=== PATIENT | male | born 1950 | race Caucasian/White ===

== ENCOUNTER 2017-10-12 11:02 | Inpatient (IN) | payer OTHER ==
[2017-10-12 12:16] VITALS: BMI 24.5
--- NOTE | 2017-10-12 12:32 | HP ---
COWS - Scale Resting Pulse: 0= [place] 80 or Below Sweatin= Chills/Flushing Restless Observation: 1= Difficult to Sit Still Pupil Size: 1= Pupils >than Normal Bone or Joint Aches: 2= Severe Diffuse Aches Runny Nose/ Eye Tearin= Runny Nose/Eyes GI Upset > 30mins: 2= Nausea/Diarrhea Tremor Observation: 2= Slight Tremor Visible Yawning Observation: 2= >3x During Session Anxiety or Irritability: 2=Irritable/Anxious Goose Flesh Skin: 0=Smooth Skin COWS Score: 15 Admission [facility] Chief Complaint: opiate withdrawal sx Allergies/Adverse Reactions: Allergies Allergy/AdvReac Type Severity Reaction Status Date / Time No Known Allergies Allergy Verified 10/12/17 12:25 History of Present Illness: 67 years old male with long history of opiate nicotine dependence has copd, hypertension, hepatitis c treated and anxiety is admitted to detox Exam Limitations: No Limitations - Ebola screening Have you traveled outside of the country in the last 21 days: No (N) Have you had contact with anyone from an Ebola affected area: No Have you been sick,other than usual withdrawal symptoms: No Do you have a fever: No - Review of Systems Constitutional: Loss of Appetite, Changes in sleep, Unintentional Wgt. Loss, Unexplained wgt Loss EENT: reports: Blurred Vision (need eye glasses) Respiratory: reports: SOB with Exertion, Productive cough Cardiac: reports: No Symptoms Reported GI: reports: Nausea, Poor Appetite, Poor Fluid Intake, Abdominal cramping : reports: No Symptoms Reported Musculoskeletal: reports: Back Pain, Joint Pain, Muscle Pain, Neck Pain Integumentary: reports: No Symptoms Reported Neuro: reports: Tremors Endocrine: reports: No Symptoms Reported Hematology: reports: No Symptoms Reported Psychiatric: reports: Judgement Intact, Orientated x3, Anxious, Depressed Other Systems: Reviewed and Negative Patient History - Patient Medical History Hx Anemia: No Hx Asthma: Yes Hx Chronic Obstructive Pulmonary Disease (COPD): Yes Hx Cancer: No Hx Cardiac Disorders: No Hx Congestive Heart Failure: No Hx Hypertension: Yes Hx Hypercholesterolemia: No Hx Pacemaker: No HX Cerebrovascular Accident: No Hx Seizures: No Hx Dementia: No Hx Diabetes: No Hx Gastrointestinal Disorders: No Hx Liver Disease: No Hx Genitourinary Disorders: No Hx Sexually Transmitted Disorders: No Hx Renal Disease (ESRD): No Hx Thyroid Disease: No Hx Human Immunodeficiency Virus (HIV): No Hx Hepatitis C: Yes (treated) Hx Depression: Yes Hx Suicide Attempt: No Hx Bipolar Disorder: No Hx Schizophrenia: No - Patient Surgical History Past Surgical History: Yes Hx Neurologic Surgery: No Hx Cataract Extraction: No Hx Cardiac Surgery: No Hx Lung Surgery: No Hx Breast Surgery: No Hx Breast Biopsy: No Hx Abdominal Surgery: No Hx Appendectomy: No Hx Cholecystectomy: No Hx Genitourinary Surgery: No Hx Orthopedic Surgery: No Other Surgical History: forehead cyst removed age 42 Anesthesia Reaction: No - PPD History Previous Implant?: Yes Documented Results: Positive w/o proof Implanted On Prior [facility] Admission?: No PPD to be Administered?: No - Smoking Cessation Smoking history: Current every day smoker Have you smoked in the past 12 months: Yes Aproximately how many cigarettes per day: 20 Cigars Per Day: 0 Hx Chewing Tobacco Use: No Initiated information on smoking cessation: Yes 'Breaking Loose' booklet given: 10/12/17 - Substance & Tx. History Hx Substance Use: Yes Substance Use Type: Heroin Hx Substance Use Treatment: Yes (age 42) Family Disease History - Family Disease History Family Disease History: Heart Disease: Father (), CA: Mother () Admission Physical Exam BHS - Vital Signs Vital Signs: Vital Signs - 24 hr 10/12/17 12:14 Temperature 97.6 F Pulse Rate 68 Respiratory 18 Rate Blood Pressure 159/83 - Physical General Appearance: Yes: Appropriately Dressed, Mild Distress, Thin, Tremorous, Irritable, Sweating, Anxious HEENTM: Yes: Hearing grossly Normal, Normocephalic, Normal Voice Respiratory: Yes: Chest Non-Tender, No Respiratory Distress, No Accessory Muscle Use, Hyperresonant Neck: Yes: Supple, Trachea in good position Breast: Yes: Breasts Symetrical, No Discharge Cardiology: Yes: Regular Rhythm, Regular Rate, S1, S2 Abdominal: Yes: Normal Bowel Sounds, Non Tender, Flat Genitourinary: Yes: Within Normal Limits Back: Yes: Normal Inspection Musculoskeletal: Yes: full range of Motion, Gait Steady, Back pain, Muscle Pain Extremities: Yes: Normal Inspection, Normal Range of Motion, Non-Tender, Tremors Neurological: Yes: Fully Oriented, Alert, Motor Strength 5/5, Normal Mood/Affect , Normal Response Integumentary: Yes: Warm Lymphatic: Yes: Within Normal Limits - Diagnostic (1) Opioid dependence with withdrawal Current Visit: Yes Status: Acute (2) Weight loss Current Visit: Yes Status: Acute (3) Hypertension Current Visit: Yes Status: Chronic Qualifiers: Hypertension type: essential hypertension Qualified Code(s): I10 - Essential (primary) hypertension (4) COPD (chronic obstructive pulmonary disease) Current Visit: Yes Status: Chronic Qualifiers: COPD type: emphysema Emphysema type: other Qualified Code(s): J43.8 - Other emphysema (5) Hepatitis C Current Visit: No Status: Resolved Qualifiers: Viral hepatitis chronicity: unspecified Hepatic coma status: without hepatic coma Qualified Code(s): B19.20 - Unspecified viral hepatitis C without hepatic coma (6) Positive PPD, treated Current Visit: No Status: Resolved Cleared for Admission S - Detox or Rehab [facility] Level of Care: Medically Managed Detox Regimen/Protocol: Methadone [facility] Breath Alcohol Content Breath Alcohol Content: 0 Urine Drug Screen - Results Drug Screen Negative: No Urine Drug Screen Results: OPI-Opiates, BZO-Benzodiazepines, MTD-Methadone
[2017-10-12] MEDS ORDERED: ACETAMINOPHEN 325 MG TABLET (FP) PO PRN (12:38)
[2017-10-12] MEDS ORDERED: MAGNESIUM HYDROX 2400MG/30ML ORAL SUSPENSION 30 ML CUP PO PRN (12:38)
[2017-10-12] MEDS ORDERED: P-EPHED 60MG/TRIPROLIDI 2.5MG TABLET PO PRN (12:38)
[2017-10-12] MEDS ORDERED: LOPERAMIDE HCL 2 MG CAPSULE PO PRN (12:38)
[2017-10-12] MEDS ORDERED: MAG HYDROX/AL HYDROX/SIMETH 30 ML UNIT-DOSE CUP PO PRN (12:38)
[2017-10-12] MEDS ORDERED: IBUPROFEN 400 MG TABLET (FP) PO PRN (12:38)
[2017-10-12] MEDS ORDERED: NICOTINE POLACRILEX 4 MG GUM BUC PRN (12:38)
[2017-10-12] MEDS ORDERED: MENTHOL/PHENOL 1 EACH UD MM PRN (12:38)
[2017-10-12] MEDS ORDERED: MAGNESIUM CITRATE 300 ML BOTTLE PO PRN (12:38)
[2017-10-12] MEDS ORDERED: guaiFENesin/D-METHORPHAN HB 10 ML UNIT-DOSE CUPS PO PRN (12:38)
[2017-10-12] MEDS ORDERED: ALBUTEROL SO4 8 GM HFA INHALER IH PRN (12:40)
[2017-10-12] MEDS ORDERED: ALBUTEROL SO4 0.083% IH SOL 2.5 MG/3 ML VIAL.NEB. NEB PRN (12:41)
[2017-10-12] MEDS ORDERED: METHADONE HCL 10 MG TABLET (FOR DETOX USE ONLY) PO ONE ×2 (14:50→23:00)
[2017-10-12] MEDS: NICOTINE 21 MG/24 HOURS TOPICAL PATCH TD SCH (16:52)
[2017-10-12] MEDS: diazePAM 5 MG TABLET PO PRN ×2 (16:53→22:10)
[2017-10-12] MEDS: HYDROCHLOROTHIAZIDE 25 MG TABLET (FP) PO SCH (16:53)
[2017-10-12 17:51] LABS: URINE APPEARANCE CLEAR; URINE BILIRUBIN NEGATIVE (<2.0 mg/dL); URINE COLOR YELLOW; URINE GLUCOSE (UA) NEGATIVE (NEGATIVE); URINE KETONE NEGATIVE (NEGATIVE); URINE LEUK ESTERASE NEGATIVE (NEGATIVE); URINE NITRITE NEGATIVE (NEGATIVE); URINE PROTEIN NEGATIVE (NEGATIVE); URINE UROBILINOGEN 4.0 E.U/dl mg/dL (0.2-1.0)
[2017-10-12] MEDS: THIAMINE HCL 100 MG TABLET (FP) PO SCH (22:10)
[2017-10-13 09:45] LABS: HEMATOCRIT 39.4 % (35.4-49); HEMOGLOBIN 13.5 GM/dL (11.7-16.9); MCH 31.1 pg (25.7-33.7); MCHC 34.3 g/dl (32.0-35.9); MEAN CELL VOLUME 90.7 fl (80-96); MEAN PLT VOLUME 10.2 fl (7.5-11.1); PLATELET COUNT 205 K/MM3 (134-434); RBC 4.35 M/mm3 (4.00-5.60); RDW 14.1 % (11.9-15.9)
[2017-10-13] MEDS ORDERED: METHADONE HCL 10 MG TABLET (FOR DETOX USE ONLY) PO ONE (10:00)
[2017-10-13 10:01] LABS: CHLORIDE 104 mmol/L (98-107); SODIUM 140 mmol/L (136-145)
[2017-10-13 10:08] LABS: ALBUMIN 4.1 g/dl (3.4-5.0); ALK PHOS 87 U/L (45-117); ANION GAP 6 (8-16); BILIRUBIN,TOTAL 0.3 mg/dL (0.2-1.0); BLOOD UREA NITROGEN 19 mg/dL (7-18); CALCIUM 9.3 mg/dL (8.5-10.1); CO2 30 mmol/L (21-32); CREATININE 0.8 mg/dL (0.7-1.3); GLUCOSE,RANDOM 110 mg/dL (74-106); SGOT/AST 20 U/L (15-37); SGPT/ALT 16 U/L (12-78); TOT PROT 7.3 g/dl (6.4-8.2)
[2017-10-13] MEDS: PRENATAL VITAMINS W/ FOLIC ACID TABLET (FP) PO SCH (10:29)
[2017-10-13] MEDS: NICOTINE 21 MG/24 HOURS TOPICAL PATCH TD SCH (10:29)
[2017-10-13] MEDS: HYDROCHLOROTHIAZIDE 25 MG TABLET (FP) PO SCH (10:29)
--- NOTE | 2017-10-13 13:58 | EKG ---
Test Reason : Blood Pressure : / mmHG Vent. Rate : 058 BPM Atrial Rate : 058 BPM P-R Int : 156 ms QRS Dur : 084 ms QT Int : 436 ms P-R-T Axes : 068 056 050 degrees QTc Int : 428 ms SINUS BRADYCARDIA POSSIBLE LEFT ATRIAL ENLARGEMENT BORDERLINE ECG NO PREVIOUS ECGS AVAILABLE Confirmed by Surjit Jenkins MD ([id number]) on 10/13/2017 1:57:34 PM Referred By: Confirmed By:Surjit Jenkins MD
--- NOTE | 2017-10-13 15:08 | PN ---
BHS COWS - Scale Resting Pulse: 0= [place] 80 or Below Sweatin= Chills/Flushing Restless Observation: 3= Extraneous Movement Pupil Size: 2= Moderately Dilated Bone or Joint Aches: 1= Mild Discomfort Runny Nose/ Eye Tearin= None GI Upset > 30mins: 0= None Tremor Observation of Outstretched Hands: 0= None Yawning Observation: 1= 1-2x During Session Anxiety or Irritability: 2=Irritable/Anxious Goose Flesh Skin: 0=Smooth Skin COWS Score: 10 S Progress Note (SOAP) Subjective: ALERT O X 3. SLIGHT ANXIETY, FATIGUE. REPORTS DETOX PROCEEDING WELL. Objective: 10/13/17 15:07 Vital Signs 10/13/17 10/13/17 09:11 13:22 Temperature 98.4 F 98.9 F Pulse Rate 60 63 Respiratory 18 18 Rate Blood Pressure 146/75 153/88 Laboratory Tests 10/12/17 10/13/17 10/13/17 16:10 06:00 06:00 WBC 10.0 RBC 4.35 Hgb 13.5 Hct 39.4 MCV 90.7 MCH 31.1 MCHC 34.3 RDW 14.1 Plt Count 205 MPV 10.2 Sodium 140 Potassium 5.0 Chloride 104 Carbon Dioxide 30 Anion Gap 6 L BUN 19 H Creatinine 0.8 Creat Clearance w eGFR > 60 Random Glucose 110 H Calcium 9.3 Total Bilirubin 0.3 AST 20 ALT 16 Alkaline Phosphatase 87 Total Protein 7.3 Albumin 4.1 Urine Color Yellow Urine Appearance Clear Urine pH 7.0 Ur Specific [place] 1.024 Urine Protein Negative Urine Glucose (UA) Negative Urine Ketones Negative Urine Blood Negative Urine Nitrite Negative Urine Bilirubin Negative Urine Urobilinogen 4.0 e.u/dl Ur Leukocyte Esterase Negative RPR Titer 10/13/17 06:00 WBC RBC Hgb Hct MCV MCH MCHC RDW Plt Count MPV Sodium Potassium Chloride Carbon Dioxide Anion Gap BUN Creatinine Creat Clearance w eGFR Random Glucose Calcium Total Bilirubin AST ALT Alkaline Phosphatase Total Protein Albumin Urine Color Urine Appearance Urine pH Ur Specific [place] Urine Protein Urine Glucose (UA) Urine Ketones Urine Blood Urine Nitrite Urine Bilirubin Urine Urobilinogen Ur Leukocyte Esterase RPR Titer Nonreactive Assessment: 10/13/17 15:08 WITHDRAWAL SX Plan: CONTINUE DETOX
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
[2017-10-13] MEDS: MELATONIN 5 MG TABLETS PO PRN (22:17)
[2017-10-13] MEDS: THIAMINE HCL 100 MG TABLET (FP) PO SCH (22:17)
[2017-10-14] MEDS: diazePAM 5 MG TABLET PO PRN ×2 (09:45→22:54)
[2017-10-14] MEDS ORDERED: METHADONE HCL 5 MG TABLET (FOR DETOX USE ONLY) PO ONE (10:00)
[2017-10-14] MEDS: PRENATAL VITAMINS W/ FOLIC ACID TABLET (FP) PO SCH (10:45)
[2017-10-14] MEDS: HYDROCHLOROTHIAZIDE 25 MG TABLET (FP) PO SCH (10:45)
[2017-10-14] MEDS: NICOTINE 21 MG/24 HOURS TOPICAL PATCH TD SCH (10:47)
--- NOTE | 2017-10-14 11:47 | PN ---
BHS COWS - Scale Resting Pulse: 0= [place] 80 or Below Sweatin= Chills/Flushing Restless Observation: 3= Extraneous Movement Pupil Size: 2= Moderately Dilated Bone or Joint Aches: 1= Mild Discomfort Runny Nose/ Eye Tearin= Nasal Congestion GI Upset > 30mins: 0= None Tremor Observation of Outstretched Hands: 2= Slight Tremor Visible Yawning Observation: 1= 1-2x During Session Anxiety or Irritability: 2=Irritable/Anxious Goose Flesh Skin: 0=Smooth Skin COWS Score: 13 BHS Progress Note (SOAP) Subjective: PT C/O ANXIETY, HOT/COLD CHILLS, INTERMITTENT SLEEP. Objective: 10/14/17 11:47 Vital Signs 10/14/17 10/14/17 10/14/17 03:48 06:16 09:20 Temperature 97.7 F 97.2 F L Pulse Rate 47 L 56 L Respiratory 18 16 17 Rate Blood Pressure 128/77 127/70 Laboratory Tests 10/12/17 10/13/17 10/13/17 16:10 06:00 06:00 WBC 10.0 RBC 4.35 Hgb 13.5 Hct 39.4 MCV 90.7 MCH 31.1 MCHC 34.3 RDW 14.1 Plt Count 205 MPV 10.2 Sodium 140 Potassium 5.0 Chloride 104 Carbon Dioxide 30 Anion Gap 6 L BUN 19 H Creatinine 0.8 Creat Clearance w eGFR > 60 Random Glucose 110 H Calcium 9.3 Total Bilirubin 0.3 AST 20 ALT 16 Alkaline Phosphatase 87 Total Protein 7.3 Albumin 4.1 Urine Color Yellow Urine Appearance Clear Urine pH 7.0 Ur Specific [place] 1.024 Urine Protein Negative Urine Glucose (UA) Negative Urine Ketones Negative Urine Blood Negative Urine Nitrite Negative Urine Bilirubin Negative Urine Urobilinogen 4.0 e.u/dl Ur Leukocyte Esterase Negative RPR Titer 10/13/17 06:00 WBC RBC Hgb Hct MCV MCH MCHC RDW Plt Count MPV Sodium Potassium Chloride Carbon Dioxide Anion Gap BUN Creatinine Creat Clearance w eGFR Random Glucose Calcium Total Bilirubin AST ALT Alkaline Phosphatase Total Protein Albumin Urine Color Urine Appearance Urine pH Ur Specific [place] Urine Protein Urine Glucose (UA) Urine Ketones Urine Blood Urine Nitrite Urine Bilirubin Urine Urobilinogen Ur Leukocyte Esterase RPR Titer Nonreactive Assessment: 10/14/17 11:47 WITHDRAWAL SX Plan: CONTINUE DETOX
[2017-10-14] MEDS: THIAMINE HCL 100 MG TABLET (FP) PO SCH (22:54)
[2017-10-15] MEDS ORDERED: METHADONE HCL 5 MG TABLET (FOR DETOX USE ONLY) PO ONE (10:00)
[2017-10-15] MEDS: PRENATAL VITAMINS W/ FOLIC ACID TABLET (FP) PO SCH (10:27)
[2017-10-15] MEDS: HYDROCHLOROTHIAZIDE 25 MG TABLET (FP) PO SCH (10:27)
[2017-10-15] MEDS: NICOTINE 21 MG/24 HOURS TOPICAL PATCH TD SCH (10:27)
[2017-10-15] MEDS: diazePAM 5 MG TABLET PO PRN (10:29)
--- NOTE | 2017-10-15 12:13 | PN ---
BHS Progress Note (SOAP) Subjective: PT C/O ANXIETY,HOT/COLD CHILLS,NASAL CONGESTIONS Objective: 10/15/17 12:12 Vital Signs 10/15/17 10/15/17 10/15/17 06:00 06:59 09:14 Temperature 96.8 F L 98.2 F Pulse Rate 48 L 56 L Respiratory 18 18 16 Rate Blood Pressure 133/76 130/78 Laboratory Tests 10/12/17 10/13/17 10/13/17 16:10 06:00 06:00 WBC 10.0 RBC 4.35 Hgb 13.5 Hct 39.4 MCV 90.7 MCH 31.1 MCHC 34.3 RDW 14.1 Plt Count 205 MPV 10.2 Sodium 140 Potassium 5.0 Chloride 104 Carbon Dioxide 30 Anion Gap 6 L BUN 19 H Creatinine 0.8 Creat Clearance w eGFR > 60 Random Glucose 110 H Calcium 9.3 Total Bilirubin 0.3 AST 20 ALT 16 Alkaline Phosphatase 87 Total Protein 7.3 Albumin 4.1 Urine Color Yellow Urine Appearance Clear Urine pH 7.0 Ur Specific [place] 1.024 Urine Protein Negative Urine Glucose (UA) Negative Urine Ketones Negative Urine Blood Negative Urine Nitrite Negative Urine Bilirubin Negative Urine Urobilinogen 4.0 e.u/dl Ur Leukocyte Esterase Negative RPR Titer 10/13/17 06:00 WBC RBC Hgb Hct MCV MCH MCHC RDW Plt Count MPV Sodium Potassium Chloride Carbon Dioxide Anion Gap BUN Creatinine Creat Clearance w eGFR Random Glucose Calcium Total Bilirubin AST ALT Alkaline Phosphatase Total Protein Albumin Urine Color Urine Appearance Urine pH Ur Specific [place] Urine Protein Urine Glucose (UA) Urine Ketones Urine Blood Urine Nitrite Urine Bilirubin Urine Urobilinogen Ur Leukocyte Esterase RPR Titer Nonreactive Assessment: 10/15/17 12:13 WITHDRAWAL SX Plan: CONTINUE DETOX ACTIFED PRN FOR NASAL SX
[2017-10-15] MEDS: MELATONIN 5 MG TABLETS PO PRN (22:12)
[2017-10-15] MEDS: THIAMINE HCL 100 MG TABLET (FP) PO SCH (22:12)
[2017-10-16] MEDS ORDERED: METHADONE HCL 10 MG TABLET (FOR DETOX USE ONLY) PO ONE (10:00)
[2017-10-16] MEDS: NICOTINE 21 MG/24 HOURS TOPICAL PATCH TD SCH (10:36)
[2017-10-16] MEDS: HYDROCHLOROTHIAZIDE 25 MG TABLET (FP) PO SCH (10:36)
[2017-10-16] MEDS: PRENATAL VITAMINS W/ FOLIC ACID TABLET (FP) PO SCH (10:36)
--- NOTE | 2017-10-16 13:14 | PN ---
S Progress Note (SOAP) Subjective: ANXIETY,SWEATS,FATIGUE. DETOX TAPER PER PROTOCOL. PT WANTS TO GO TO REHAB AFTER DETOX. Objective: 10/16/17 13:11 Laboratory Last Values WBC 10.0 K/mm3 (4.0-10.0) 10/13/17 06:00 RBC 4.35 M/mm3 (4.00-5.60) 10/13/17 06:00 Hgb 13.5 GM/dL (11.7-16.9) 10/13/17 06:00 Hct 39.4 % (35.4-49) 10/13/17 06:00 MCV 90.7 fl (80-96) 10/13/17 06:00 MCH 31.1 pg (25.7-33.7) 10/13/17 06:00 MCHC 34.3 g/dl (32.0-35.9) 10/13/17 06:00 RDW 14.1 % (11.9-15.9) 10/13/17 06:00 Plt Count 205 K/MM3 (134-434) 10/13/17 06:00 MPV 10.2 fl (7.5-11.1) 10/13/17 06:00 Sodium 140 mmol/L (136-145) 10/13/17 06:00 Potassium 5.0 mmol/L (3.5-5.1) 10/13/17 06:00 Chloride 104 mmol/L (98-107) 10/13/17 06:00 Carbon Dioxide 30 mmol/L (21-32) 10/13/17 06:00 Anion Gap 6 (8-16) L 10/13/17 06:00 BUN 19 mg/dL (7-18) H 10/13/17 06:00 Creatinine 0.8 mg/dL (0.7-1.3) 10/13/17 06:00 Creat Clearance w eGFR > 60 (>60) 10/13/17 06:00 Random Glucose 110 mg/dL (74-106) H 10/13/17 06:00 Calcium 9.3 mg/dL (8.5-10.1) 10/13/17 06:00 Total Bilirubin 0.3 mg/dL (0.2-1.0) 10/13/17 06:00 AST 20 U/L (15-37) 10/13/17 06:00 ALT 16 U/L (12-78) 10/13/17 06:00 Alkaline Phosphatase 87 U/L (45-117) 10/13/17 06:00 Total Protein 7.3 g/dl (6.4-8.2) 10/13/17 06:00 Albumin 4.1 g/dl (3.4-5.0) 10/13/17 06:00 Urine Color Yellow 10/12/17 16:10 Urine Appearance Clear 10/12/17 16:10 Urine pH 7.0 (5.0-8.0) 10/12/17 16:10 Ur Specific [place] 1.024 (1.001-1.035) 10/12/17 16:10 Urine Protein Negative (NEGATIVE) 10/12/17 16:10 Urine Glucose (UA) Negative (NEGATIVE) 10/12/17 16:10 Urine Ketones Negative (NEGATIVE) 10/12/17 16:10 Urine Blood Negative (NEGATIVE) 10/12/17 16:10 Urine Nitrite Negative (NEGATIVE) 10/12/17 16:10 Urine Bilirubin Negative (<2.0 mg/dL) 10/12/17 16:10 Urine Urobilinogen 4.0 e.u/dl mg/dL (0.2-1.0) 10/12/17 16:10 Ur Leukocyte Esterase Negative (NEGATIVE) 10/12/17 16:10 RPR Titer Nonreactive (NONREACTIVE) 10/13/17 06:00 Assessment: 10/16/17 13:13 WITHDRAWAL SX Plan: CONTINUE DETOX PT MET WITH COUNSELOR ZULY PHILLIP TODAY RE:AFTERCARE PLANS FOR REHAB.
[2017-10-16] MEDS: MELATONIN 5 MG TABLETS PO PRN (22:28)
[2017-10-16] MEDS: THIAMINE HCL 100 MG TABLET (FP) PO SCH (22:28)
[2017-10-17] MEDS ORDERED: METHADONE HCL 5 MG TABLET (FOR DETOX USE ONLY) PO ONE (06:00)
[2017-10-17 09:33] VITALS: BP 139/78; PULSE 64; TEMP 98.2
--- NOTE | 2017-10-17 19:28 | PN ---
BHS Progress Note (SOAP) Subjective: Patient denies current Detox symptoms and reports that he feels well overall. Objective: PATIENT A & O X 3, OBSERVED AMBULATING ON UNIT. NO ACUTE DISTRESS. 10/17/17 19:27 Vital Signs Temperature 98.2 F 10/17/17 09:32 Pulse Rate 64 10/17/17 09:32 Respiratory Rate 18 10/17/17 09:32 Blood Pressure 139/78 10/17/17 09:32 O2 Sat by Pulse Oximetry (%) Laboratory Tests 10/12/17 10/13/17 10/13/17 16:10 06:00 06:00 WBC 10.0 RBC 4.35 Hgb 13.5 Hct 39.4 MCV 90.7 MCH 31.1 MCHC 34.3 RDW 14.1 Plt Count 205 MPV 10.2 Sodium 140 Potassium 5.0 Chloride 104 Carbon Dioxide 30 Anion Gap 6 L BUN 19 H Creatinine 0.8 Creat Clearance w eGFR > 60 Random Glucose 110 H Calcium 9.3 Total Bilirubin 0.3 AST 20 ALT 16 Alkaline Phosphatase 87 Total Protein 7.3 Albumin 4.1 Urine Color Yellow Urine Appearance Clear Urine pH 7.0 Ur Specific [place] 1.024 Urine Protein Negative Urine Glucose (UA) Negative Urine Ketones Negative Urine Blood Negative Urine Nitrite Negative Urine Bilirubin Negative Urine Urobilinogen 4.0 e.u/dl Ur Leukocyte Esterase Negative RPR Titer 10/13/17 06:00 WBC RBC Hgb Hct MCV MCH MCHC RDW Plt Count MPV Sodium Potassium Chloride Carbon Dioxide Anion Gap BUN Creatinine Creat Clearance w eGFR Random Glucose Calcium Total Bilirubin AST ALT Alkaline Phosphatase Total Protein Albumin Urine Color Urine Appearance Urine pH Ur Specific [place] Urine Protein Urine Glucose (UA) Urine Ketones Urine Blood Urine Nitrite Urine Bilirubin Urine Urobilinogen Ur Leukocyte Esterase RPR Titer Nonreactive LABS NOTED. Assessment: 10/17/17 19:27 COMPLETION OF DETOX REGIMEN. Plan: PATIENT SCHEDULED FOR DISCHARGE FROM DETOX REGIMEN TODAY.
--- NOTE | 2017-10-17 19:35 | DS ---
[facility] Detox Discharge Summary Admission Date: 10/12/17 Discharge Date: 10/17/17 - History Present History: Opioid Dependence Additional Comments: NO BEDS ARE AVAILABLE IN [facility] AT THIS TIME. PATIENT WILL RETURN HOME FOR NEXT COUPLE OF NIGHTS, THEN CONTACT [facility] ADMISSION DEPT. ON 10/19/2017 TO INQUIRE ABOUT POSSIBLE ADMISSION AND REHAB BED AVAILABILITY AT THAT TIME. PATIENT WAS DISCHARGED FROM DETOX UNIT IN STABLE MEDICAL CONDITION. Pertinent Past History: HTN, Asthma, C.O.P.D. (Emphysema), Weight Loss, History of Positive PPD (Treated ), Hep C. - Physical Exam Results Vital Signs: Vital Signs Temperature 98.2 F 10/17/17 09:32 Pulse Rate 64 10/17/17 09:32 Respiratory Rate 18 10/17/17 09:32 Blood Pressure 139/78 10/17/17 09:32 O2 Sat by Pulse Oximetry (%) Pertinent Admission Physical Exam Findings: WITHDRAWAL SYMPTOMS. Laboratory Tests 10/12/17 10/13/17 10/13/17 16:10 06:00 06:00 WBC 10.0 RBC 4.35 Hgb 13.5 Hct 39.4 MCV 90.7 MCH 31.1 MCHC 34.3 RDW 14.1 Plt Count 205 MPV 10.2 Sodium 140 Potassium 5.0 Chloride 104 Carbon Dioxide 30 Anion Gap 6 L BUN 19 H Creatinine 0.8 Creat Clearance w eGFR > 60 Random Glucose 110 H Calcium 9.3 Total Bilirubin 0.3 AST 20 ALT 16 Alkaline Phosphatase 87 Total Protein 7.3 Albumin 4.1 Urine Color Yellow Urine Appearance Clear Urine pH 7.0 Ur Specific [place] 1.024 Urine Protein Negative Urine Glucose (UA) Negative Urine Ketones Negative Urine Blood Negative Urine Nitrite Negative Urine Bilirubin Negative Urine Urobilinogen 4.0 e.u/dl Ur Leukocyte Esterase Negative RPR Titer 10/13/17 06:00 WBC RBC Hgb Hct MCV MCH MCHC RDW Plt Count MPV Sodium Potassium Chloride Carbon Dioxide Anion Gap BUN Creatinine Creat Clearance w eGFR Random Glucose Calcium Total Bilirubin AST ALT Alkaline Phosphatase Total Protein Albumin Urine Color Urine Appearance Urine pH Ur Specific [place] Urine Protein Urine Glucose (UA) Urine Ketones Urine Blood Urine Nitrite Urine Bilirubin Urine Urobilinogen Ur Leukocyte Esterase RPR Titer Nonreactive LABS NOTED. - Treatment Hospital Course: Detox Protocol Followed, Detoxed Safely, Responded well, Discharged Condition Good, Rehab Referral Accepted Patient has Accepted a Rehab Referral to: [facility] ([place] . - Medication Discharge Medications: Ambulatory Orders Albuterol Sulfate Inhaler - [Ventolin Hfa Inhaler -] 2 inh PO Q4H PRN 10/12/17 Hydrochlorothiazide [Hctz -] 25 mg PO DAILY #30 tablet 10/17/17 - Diagnosis (1) Nicotine dependence Status: Acute Qualifiers: Nicotine product type: cigarettes Substance use status: uncomplicated Qualified Code(s): F17.210 - Nicotine dependence, cigarettes, uncomplicated (2) Opioid dependence with withdrawal Status: Acute (3) Weight loss Status: Acute (4) COPD (chronic obstructive pulmonary disease) Status: Chronic Qualifiers: COPD type: emphysema Emphysema type: other Qualified Code(s): J43.8 - Other emphysema (5) Hypertension Status: Chronic Qualifiers: Hypertension type: essential hypertension Qualified Code(s): I10 - Essential (primary) hypertension (6) Hepatitis C Status: Resolved Qualifiers: Viral hepatitis chronicity: unspecified Hepatic coma status: without hepatic coma Qualified Code(s): B19.20 - Unspecified viral hepatitis C without hepatic coma (7) Positive PPD, treated Status: Resolved - AMA Did Patient Leave Against Medical Advice: No
== END 2017-10-17 09:41 | disposition home or self-care (01) | DRG 897 ==
LOC: YASAS 11:02 → Y3N 14:41
PROVIDERS: ADMIT Surgery; ATTEND Surgery
PROC: HZ2ZZZZ Detoxification Services for Substance Abuse Treatment (ICD-10-PCS; principal; 2017-10-12)
DX: F11.23 Opioid dependence with withdrawal (principal); F17.210 Nicotine dependence, cigarettes, uncomplicated; I10 Essential (primary) hypertension; J43.8 Other emphysema; B18.2 Chronic viral hepatitis C; R76.11 Nonspecific reaction to tuberculin skin test without active tuberculosis; R63.4 Abnormal weight loss; Z68.24 Body mass index [BMI] 24.0-24.9, adult; Z59.0 Homelessness
CPT/HCPCS: 36415; 71046-TC-FY; 80053; 81003; 85027; 86593; 93005; 93010